=== PATIENT | female | born 1970 | race American Indian/Alaskan Native ===

== ENCOUNTER 2016-04-04 13:38 | Emergency (ER) | payer SELFPAY ==
[2016-04-04] MEDS ORDERED: ROCEPHIN IM STA (16:25)
--- NOTE | 2016-04-04 16:25 | Emergency Department Report ---
Upper Extremity - HPI Chief Complaint: Laceration/Recheck/Suture Stated Complaint: RT HAND FINGER BROKEN Time Seen by Provider: 04/04/16 16:17 Upper Extremity: Right Hand (right hand pain), Right Middle Finger (right finger injury after fall. Laceration) Occurred When: Today Mechanism: Fall Severity: severe Symptoms: Yes Pain with Movement (right middle finger), Yes Deformity (positive deformity), Yes Limited Range of Movement (right middle finger), Yes Swelling ( middle finger), Yes Laceration or Abrasion (right middle finger laceration), No Numbness, No Weakness, No Bruising/Ecchymosis Other History: Patient here reported that she was walking and [employer] today and she slipped and fell on wet floor. She was trying to break her fall and her right hand bent back and now she has a cut on her right middle finger and it is deformed. Report pain 10 out of 10. Denies any numbness or tingling. When asked, patient says she got her last tetanus shot in 2016 ED Review of Systems ROS: Stated complaint: RT HAND FINGER BROKEN Other details as noted in HPI Comment: All other systems reviewed and negative Constitutional: no symptoms reported Respiratory: no symptoms reported Cardiovascular: denies: chest pain, palpitations, edema, syncope Gastrointestinal: denies: nausea, vomiting Musculoskeletal: joint swelling, arthralgia Skin: other (laceration to right middle finger) Neurological: denies: weakness, numbness, paresthesias, abnormal gait, vertigo ED Past Medical Hx - Past Medical History Previous Medical History?: Yes Additional medical history: Vertigo - Surgical History Past Surgical History?: Yes Additional Surgical History: Hysterectomy - Family History Family history: no significant - Social History Smoking Status: Never Smoker Substance Use Type: None - Medications Home Medications: Home Medications Medication Instructions Recorded Confirmed Last Taken Type Promethazine [Phenergan TAB] 25 mg PO Q8HR PRN #15 tab 05/05/15 Unknown Rx Acetaminophen/Codeine [Tylenol #3] 1 tab PO Q6H PRN #12 tab 04/04/16 Unknown Rx Sulfamethoxazole/Trimethoprim 1 each PO BID #20 tablet 04/04/16 Unknown Rx [Bactrim DS TAB] Upper Extremity Exam - Exam General: Vital signs noted. No distress. Alert and acting appropriately. This is a 46-year-old female well-nourished well-developed in no acute distress. Head and Torso: No HEENT Abnormality, No Neck Tenderness, No Chest/Lungs Abnormality, No Abdominal Tenderness, No Back Tenderness Shoulder Exam: No Shoulder Tenderness, No Clavicle Tenderness, No Normal Range of Motion in Shoulder, No Shoulder Deformity, No AC Joint Tenderness Arm Exam: No Arm/Humerus Tenderness, No Arm Deformity Elbow: Yes Normal Range of Motion in Elbow, No Elbow Tenderness, No Elbow Deformity Forearm: No Forearm Tenderness, No Forearm Deformity, No Pain with Pronation, No Pain with Supination Wrist: Yes Normal ROM in Wrist, No Wrist Tenderness, No Wrist Deformity, No Snuffbox Tenderness, No Pain with Axial Thumb Compression Hand: Yes Digit Tenderness (right middle finger), Yes Normal ROM in Digit(s) ( right middle finger), Yes Digit(s) Deformity (right middle finger), No Hand Tenderness, No Hand Deformity, No Tendon Dysfunction CMS Exam: Yes Broken Skin (right middle finger laceration 0.5 cm), Yes Normal Distal Pulses, Yes Normal Capillary Refill, Yes Normal Distal Sensation ED Course Vital Signs 04/04/16 13:45 Temperature 97.8 F Pulse Rate 88 Respiratory 20 Rate Blood Pressure 156/107 O2 Sat by Pulse 100 Oximetry Vital Signs 04/04/16 04/04/16 13:45 19:32 Temperature 97.8 F 98.1 F Pulse Rate 88 101 H Respiratory 20 18 Rate Blood Pressure 156/107 Blood Pressure 125/73 [Right] O2 Sat by Pulse 100 96 Oximetry - Reevaluation(s) Reevaluation #1: 04/04/16 19:32 Patient received Motrin 800 mg 1 tablet prior to procedure. Then requested stronger pain medicine so she was given Percocet 5/325 mg 2 tablets. He was also given Rocephin 1 g IM without any adverse reaction. 04/04/16 19:32 - Laceration /Wound Repair Right Medial Finger Wound Location: upper extremity (right middle finger palmar aspect) Wound Length (cm): 0 (0.5 cm) Wound's Depth, Shape: superficial, linear Wound Explored: clean Irrigated w/ Saline (ccs): 500 Betadine Prep?: Yes (0.5% Marcaine) Volume Anesthetic (ccs): 5 Wound Debrided: extensive Wound Repaired With: sutures Suture Size/Type: 5:0 Number of Sutures: 7 Layer Closure?: No Sterile Dressing Applied?: Yes - Nerve Block Consent Obtained: verbal consent Time Out Performed: Yes Local Anesthetic Used: Marcaine 0.5% Amount of anesthesia used: 5 Side: right Nerve Blocks: digital (middle finger) Procedure Successful: Yes Complications: none Patient Tolerated Procedure: well, no complications - Orthopedic Joint Reduction Joint #1 Consent Obtained: verbal consent Time Out Performed: Yes Side: right Joint Reduction Location: finger (middle finger) Analgesia: digital block Local Anesthetic Used: Bupivicaine 0.5% Amount of Anesthetic Used (mls): 5 Post-Reduction Neuro Exam: intact Post-Reduction Vascular Exam: intact Post Reduction X-Ray Obtained: Yes Post Reduction X-Ray Results: reduced Splint Applied: Yes (metal finger splint) Patient Tolerated Procedure: well, no complications ED Medical Decision Making - Radiology Data Radiology results: report reviewed X-ray of right middle finger showed dislocation. X-ray status post reduction showed normal bony alignment without any fracture or dislocation - Medical Decision Making ED course: Procedure note for details on multiple procedures Critical care attestation.: If time is entered above; I have spent that time in minutes in the direct care of this critically ill patient, excluding procedure time. ED Disposition Clinical Impression: Dislocation of right middle finger Qualifiers: Encounter type: initial encounter Qualified Code(s): S63.252A - Unspecified dislocation of right middle finger, initial encounter Finger laceration Qualifiers: Encounter type: initial encounter Qualified Code(s): S61.219A - Laceration without foreign body of unspecified finger without damage to nail, initial encounter Contusion of finger of right hand Qualifiers: Encounter type: initial encounter Finger: middle finger Damage to nail status: without damage Qualified Code(s): S60.031A - Contusion of right middle finger without damage to nail, initial encounter Disposition: DISCHARGED TO HOME OR SELFCARE Is pt being admited?: No Does the pt Need Aspirin: No Condition: Stable Instructions: Finger Laceration (ED), Suture Care (ED), Finger Dislocation (ED) , Arthralgia (ED) Additional Instructions: Take antibiotics as prescribed. Pain medicine can cause drowsiness. Do not drive or operate any heavy machinery while on pain medicine Follow-up with orthopedic doctor if she continues to have pain. Splint in place for 72 hours Please return in 7 days to have sutures removed .If you notice. Redness, swelling, increased pain, stiffness to finger, numbness or tingling and fever. Please return to the emergency room [facility]. Prescriptions: Acetaminophen/Codeine [Tylenol #3] 1 tab PO Q6H PRN #12 tab PRN Reason: Pain Sulfamethoxazole/Trimethoprim [Bactrim DS TAB] 1 each PO BID #20 tablet Referrals: KIMBERLY SALDANA MD [Staff Physician] - 2-3 Days PRIMARY CARE, [Primary Care Provider] - 7-10 days Forms: Accompanied Note, Work/School Release Form(ED)
[2016-04-04] MEDS ORDERED: XYLOCAINE 1% MPF 5 mL INFILTRATI ONE (16:26)
[2016-04-04] MEDS ORDERED: MOTRIN PO ONE (16:26)
[2016-04-04] MEDS ORDERED: NACL 0.9% IR ONE (16:28)
[2016-04-04] MEDS ORDERED: MARCAINE 0.5% INFILTRATI ONE (17:37)
[2016-04-04] MEDS ORDERED: PERCOCET 5/325 PO ONE (17:57)
--- NOTE | 2016-04-04 19:22 | XRay Report ---
FINAL REPORT EXAM: XR HAND 2V RT HISTORY: reduction of dislocated finger. post reduction TECHNIQUE: AP view of the right hand and a lateral view of the right 3rd finger PRIORS: Right hand series performed earlier on the same day FINDINGS: There is been interval reduction of a 3rd proximal interphalangeal joint dislocation. Presently the bones are normally aligned. There is no evidence of acute fracture. IMPRESSION: Status post reduction of a 3rd proximal interphalangeal joint dislocation.
--- NOTE | 2016-04-04 19:32 | XRay Report ---
FINAL REPORT EXAM: XR HAND 3 RT HISTORY: rt hand injury/pain lac, TECHNIQUE: Three views of the right hand PRIORS: Subsequent hand series performed later on the same day FINDINGS: Present images show medial subluxation of the 3rd middle phalanx with respect to proximal of about 1/2 shaft with or 6 millimeters. There is complete dorsal subluxation. There is approximately 9 millimeters of overlap of the bones. There is no evidence of acute fracture. There is associated soft tissue swelling. Otherwise, the bones, joints and soft tissues are unremarkable. IMPRESSION: Medial and dorsal subluxation of the 3rd middle phalanx with respect to proximal.
[2016-04-04 19:33] VITALS: BP 125/73
== END 2016-04-04 19:46 | disposition home or self-care (01) ==
LOC: ED 13:38
DX: S63.252A Unspecified dislocation of right middle finger, initial encounter (principal); S61.212A Laceration without foreign body of right middle finger without damage to nail, initial encounter; S60.031A Contusion of right middle finger without damage to nail, initial encounter; W01.0XXA Fall on same level from slipping, tripping and stumbling without subsequent striking against object, initial encounter; Y93.9 Activity, unspecified; Y92.9 Unspecified place or not applicable; Y99.9 Unspecified external cause status
CPT/HCPCS: 12041; 26770; 73120; 73130; 96372; 99283; J0696

== ENCOUNTER 2020-09-05 07:15 | Outpatient (CLI) | payer BC ==
--- NOTE | 2020-09-05 09:06 | Fluoroscopy Report ---
Barium swallow Indication: Preoperative evaluation. Technique: Single and double contrast barium technique utilized to evaluate the esophagus. Findings: No mucosal irregularity, mass, mass effect, or critical stenosis. There were no abnormal tertiary c ontractions as seen with dysmotility. There was mild gastroesophageal reflux reaching the lower esoph paul. There was also a small hiatal hernia. Impression: Small hiatal hernia and mild gastroesophageal reflux. Fluoroscopic time: 0.6 minutes Number of fluoroscopic images: 18 Signer Name: Luther Wright MD Signed: 09/05/2020 9:02 AM Workstation Name: [id number]
== END 2020-09-05 07:16 | disposition home or self-care (01) ==
LOC: FLUORO 07:15
PROVIDERS: ATTEND Surgery
DX: K21.9 Gastro-esophageal reflux disease without esophagitis (principal); E66.01 Morbid (severe) obesity due to excess calories
CPT/HCPCS: 74220

== ENCOUNTER 2020-09-10 06:31 | Day surgery (SDC) | payer BC ==
[2020-09-10] MEDS ORDERED: SODIUM CHLORIDE 0.9% 1000 ML 1,000 ML IV SCH (07:00)
--- NOTE | 2020-09-10 07:26 | Anesthesia Consultation ---
Anesthesia Consult and Med Hx Date of service: 09/10/20 - Airway Anesthetic Teeth Evaluation: Good ROM Head & Neck: Adequate Mental/Hyoid Distance: Adequate Mallampati Class: Class III Intubation Access Assessment: Possibly Difficult - Pre-Operative Health Status ASA Pre-Surgery Classification: ASA3 Proposed Anesthetic Plan: MAC - Other Systems Hx Obesity: Yes (BMI 52.0) - Additional Comments Anesthesia Medical History Comments: Bariatric surgical evaluation
--- NOTE | 2020-09-10 07:27 | Anesthesia Day of Surgery ---
Anesthesia Day of Surgery - Day of Surgery Patient Examined: Yes Patient H&P Reviewed: Yes Patient is NPO: Yes
[2020-09-10] MEDS ORDERED: ONDANSETRON 4 MG/2 ML INJ ONE (07:38)
[2020-09-10] MEDS ORDERED: LIDOCAINE MPF (2%) 20 MG/1 ML VIAL 5 ML ONE (07:38)
[2020-09-10] MEDS ORDERED: fentaNYL 100 MCG/2 ML INJ ONE (07:39)
[2020-09-10] MEDS ORDERED: propofoL 200 MG/20 ML VIAL IV ONE (07:39)
--- NOTE | 2020-09-10 08:19 | Discharge Summary ---
Providers - Providers Date of Admission: 09/10/2020 Date of discharge: 09/10/20 Attending physician: AARON PERRY MD Primary care physician: QUITA JACOBSON Hospitalization Reason for admission: s/p EGD with bx Condition: Good Procedures: EGD with bx Hospital course: Pt presented for a pre-op EGD as part of planning for up coming bariatric surgery. Procedure was uneventful and pt recovered well and was discharged to home. Disposition: DC-01 TO HOME OR SELFCARE Final Discharge Diagnosis (Prints w/discharge instructions): morbid obesity Core Measure Documentation - Palliative Care Palliative Care/ Comfort Measures: Not Applicable - Core Measures Any of the following diagnoses?: none Exam - Physical Exam Narrative exam: unchanged from pre-op - Constitutional Vitals: Temp Pulse Resp BP Pulse Ox 98.1 F 88 19 135/86 96 09/10/20 07:10 09/10/20 07:10 09/10/20 07:10 09/10/20 07:10 09/10/20 07:10 Plan Activity: advance as tolerated Diet: low carbohydrate Follow up with: QUITA JACOBSON MD [Primary Care Provider] - 7 Days
--- NOTE | 2020-09-10 08:21 | Operative Report ---
Operative Report Operative Report: DATE: 09/10/2020 SURGERY: Upper endoscopy. SURGEON: Emigdio Borden M.D. PROCEDURE: EGD with biopsy PRE OP DX: morbid obesity, GERD POST OP DX: morbid obesity, GERD TYPE OF ANESTHESIA: MAC. ESTIMATED BLOOD LOSS: None. COMPLICATIONS: None. SPECIMENS REMOVED: antral biopsy FINDINGS: 1. hiatal hernia. 2. mild gastritis INDICATIONS:INDICATION FOR PROCEDURE: Patient is a 50-year-old female with a long history of morbid obesity. She is planned to have a weight loss procedure and is here for preoperative planning EGD. PROCEDURE DETAILS: After consent was reviewed, patient was taken back to the operating room where patient was placed in the left lateral decubitus position and a bite block was placed in the mouth. After a time-out was called, MAC anesthesia was initiated. I then passed the endoscope into her oropharynx, into her esophagus, visualized the entire esophagus, which was all within normal limits. Z-line was noted to about 35cm from incisors. I then visualized the stomach and the first portion of the duodenum and there were no abnormalities I could clearly visualize except for antral gastritis. A cold forceps biopsy of the antrum was taken and will be sent to pathology to evaluate for H.pylori. I then retroflexed the scope in the stomach and visualized the hiatus and I could see a small hiatal hernia. I then desufflated the stomach and removed the endoscope. Patient tolerated procedure well and was transferred to recovery room in good and stable condition.
[2020-09-10 08:32] VITALS: BP 119/81
--- NOTE | 2020-09-10 17:17 | Post Anesthesia Evaluation ---
- Post Anesthesia Evaluation Patient Participated: Yes Airway Patent: Yes Stable Respiratory Function: Yes Nausea/Vomiting: No Temp > 96.8F: Yes Pain Manageable: Yes Adequeate Hydration: Yes Anesthesia Complications: No Block Receding Appropriately: Not Applicable Patient on Ventilator: No
== END 2020-09-10 06:32 | disposition home or self-care (01) ==
LOC: GIO 06:31
PROVIDERS: ATTEND Surgery
DX: K21.9 Gastro-esophageal reflux disease without esophagitis (principal); E66.01 Morbid (severe) obesity due to excess calories; K44.9 Diaphragmatic hernia without obstruction or gangrene; K29.70 Gastritis, unspecified, without bleeding; Z79.899 Other long term (current) drug therapy; Z98.890 Other specified postprocedural states; Z68.43 Body mass index [BMI] 50.0-59.9, adult
CPT/HCPCS: 43239; 88305; 88342; J2405; J2704; J3010; J7030

== ENCOUNTER → 2020-09-30 | Outpatient (CLI) | payer BC | END | disposition home or self-care (01) | LOC: SLR 11:00 | PROVIDERS: ATTEND Otolaryngology | DX: G47.30 Sleep apnea, unspecified (principal) | CPT/HCPCS: G0399 ==

== ENCOUNTER 2020-10-10 11:00 | Outpatient (CLI) | payer BC | END 2020-10-10 11:01 | disposition home or self-care (01) | LOC: SLR 11:00 | PROVIDERS: ATTEND Surgery | DX: G47.33 Obstructive sleep apnea (adult) (pediatric) (principal) | CPT/HCPCS: 95811 ==

== ENCOUNTER 2020-10-21 06:01 | Inpatient (IN) | payer BC ==
[2020-10-11 09:56] LABS: Hematocrit 39.2 % (30.3-42.9); Hemoglobin 13.2 gm/dl (10.1-14.3); Mean Corpuscular HGB Conc 34 % (30-34); Mean Corpuscular Volume 86 fl (79-97); Platelet Count 293 K/mm3 (140-440); Red Blood Count 4.57 M/mm3 (3.65-5.03); Red Cell Distribution Width 15.9 % (13.2-15.2)
[2020-10-11 10:20] LABS: Alanine Aminotransferase 20 units/L (7-56); Albumin 4.2 g/dL (3.9-5); BUN/Creatinine Ratio 16; Blood Urea Nitrogen 13 mg/dL (7-17); Calcium 9.8 mg/dL (8.4-10.2); Hemolysis Index 2
--- NOTE | 2020-10-11 11:03 | Anesthesia Consultation ---
Anesthesia Consult and Med Hx Date of service: 10/21/20 - Airway Anesthetic Teeth Evaluation: Good ROM Head & Neck: Adequate Mental/Hyoid Distance: Adequate Mallampati Class: Class I Intubation Access Assessment: Good - Pre-Operative Health Status ASA Pre-Surgery Classification: ASA3 Proposed Anesthetic Plan: General - Pulmonary Hx Smoking: No Hx Respiratory Symptoms: No (+2FS) Hx Sleep Apnea: Yes - Other Systems Hx Alcohol Use: No Hx Substance Use: No Hx Cancer: No Hx Obesity: Yes (BMI 52.0) - Additional Comments Anesthesia Medical History Comments: NO RECORDS AVAILABLE AT THE TIME OF THIS VISIT. Pt reports negative cardiac workup. +ALEYDA and will be started on CPAP
[~2020-10-21 06:01] MED LIST: ENOXAPARIN 40 MG/0.4 ML INJ SUB-Q NR; GABAPENTIN 500 MG/10 ML ORAL LIQD PO NR; LACTATED RINGERS 1,000 ML IV SCH; MIDAZOLAM 2 MG/2 ML INJ IV NR; metroNIDAZOLE/NS 500 MG/100 ML 500 MG/100 ML BAG IV NR
--- NOTE | 2020-10-21 06:45 | Anesthesia Day of Surgery ---
Anesthesia Day of Surgery - Day of Surgery Patient Examined: Yes Patient H&P Reviewed: Yes Patient is NPO: Yes
[2020-10-21] MEDS ORDERED: SCOPOLAMINE TRANSDERMAL PATCH 72 HR TD ONE (06:46)
[2020-10-21] MEDS ORDERED: SUGAMMADEX SODIUM 200 MG/2 ML VIAL IV ONE (07:10)
[2020-10-21] MEDS ORDERED: LIDOCAINE (2%) 20 MG/1 ML VIAL 20 ML MDV INFILTRATI ONE (07:10)
[2020-10-21] MEDS ORDERED: MAGNESIUM SULFATE 4 GM/100 ML BAG IV ONE (07:11)
[2020-10-21] MEDS ORDERED: ROCURONIUM 50 MG/5 ML INJ IV ONE (07:25)
[2020-10-21] MEDS ORDERED: KETAMINE/STERILE WATER 50 MG/ML SYRINGE ONE (07:26)
[2020-10-21] MEDS ORDERED: BUPIVACAINE/PF (0.25%) 2.5 MG/ML 30 ML VIAL INFILTRATI ONE ×2 (07:27→08:44)
[2020-10-21] MEDS ORDERED: LIDOCAINE 1%/EPINEPHRINE 1:100,000 VIAL (20 ML) INFILTRATI ONE ×2 (07:27→08:44)
[2020-10-21] MEDS ORDERED: ACETAMINOPHEN IV 1,000 MG/100 ML BOTTLE IV NR (08:00)
[2020-10-21] MEDS ORDERED: ONDANSETRON 4 MG/2 ML INJ IV PRN ×2 (08:03→11:00)
[2020-10-21] MEDS ORDERED: HYDROmorphone 1 MG/1 ML INJ IV PRN ×2 (08:03→10:30)
[2020-10-21] MEDS ORDERED: SODIUM CHLORIDE 0.9% IRR 1,500 ML BOTTLE IR ONE (08:45)
[2020-10-21] MEDS ORDERED: LACTATED RINGERS 1,000 ML ONE (09:52)
[2020-10-21] MEDS ORDERED: dexAMETHasone 20 MG/5 ML VIAL ONE (09:52)
--- NOTE | 2020-10-21 09:55 | Operative Report ---
Operative Report Operative Report: DATE:10/21/2020 Surgeon: Emigdio Borden MD Manual Tester surgeon: Ivania Rendon CSA, MD Pre-op Dx: morbid obesity Post-op Dx: morbid obesity Procedure: 1. laparoscopic sleeve gastrectomy, 2. hiatal hernia repair Anesthesia: GETA and TAP block EBL: <10ml Specimen: gastric remnant Complication: none immediate Indication: 50 year old female with a history of morbid obesity . Pt is here for sleeve gastrectomy for weight loss to achieve healthier weight and improve or resolve his co-morbidities. She expressed understanding of the risks and benefits. PROCEDURE IN DETAIL: After consent was reviewed, patient was taken back to the operating room, where patient was placed supine on the bed with both arms out. The patient's legs were doubly strapped to the bed. Patient had a foot board in place. Patient had a body warmer placed by anesthesia. General anesthesia was induced with successful endotracheal intubation. Patient was then prepped and draped in normal sterile surgical fashion. After a time-out was called, I made a stab incision in the left subcostal area and placed a Veress needle through this incision and insufflated the abdomen to 18 mmHg pressure. I then counted down a handsbreadth below the xiphoid process in the midline and slightly left lateral injected local anesthetic and made about 1 cm transverse incision. I then used a 5-mm Optiview trocar to enter into the abdomen. There was no gross injury to any intra-abdominal structures. I then placed a 30-degree scope through this port and inspected the abdomen. I then placed a 8-mm port in the right upper quadrant, and 1 5mm in the epigastric area below the costovertebral angle. I then placed a 15-mm port about a handsbreadth in the right mid abdomen. After which a 5mm port was placed in left upper quadrant port along the anterior axillary line in a similar fashion. A liver retractor was placed to the epigastric port to elevate the left lateral lobe and liver. There was a small hiatal hernia appreciated that was accentuated with right and left crural dissection. Hiatal hernia sac was dissected from the crura until the GE junction was resting about 2cm below the level of the diaphragm without tension. An anterior crura-plasty was preformed a U-stitch using surgidac suture. The anterior gastric fat pad was excised. Starting approximately 6 cm proximal to the pylorus, using a LigaSure device the short gastrics were taken all the way to the left rena. Once the lateral portion of the stomach was mobile anesthesia passed a 40 Niuean bougie along the medial aspect to act as a stent. Using serial firings of endoscopic stapler to gold, followed by 5 blue, the lateral portion of the stomach was transected making sure to did not close to the 2 cm to the incisura. All staple loads were supported with Ethicon buttress strips. The sleeve stomach was seen to be without kink obstruction or twisting. The pre ssure was decreased to 10 mmHg. The staple line was inspected for approximately 5 minutes. There was no significant bleeding appreciated except for a slight loose at the most distal portion of the staple line. Bleeding was minimal and easily controlled with minimal cautery. Tisseel was then sprayed along the entirety of the staple line. The liver retractor was removed. A TAP block was performed with 60ml of 0.25% marcaine along bilateral mid axillary lines starting from the subcostal region to just below the level of the umbilicus This was after the gastric remnant was grasped and pulled into the 15 mm trocar site. The stomach was extracted via the 15 mm trocar site. After the fascia had to be stretched with a Lulu clamp to easily remove the stomach, the fascia was closed using a darrius isa device at the level of the fascia with an 0 PDS. trocars were removed under direct visualization. All skin incisions were closed with 4-0 Monocryl followed by Dermabond. Patient was awoken, extubated, and taken to recovery stable condition. All counts were correct.
[2020-10-21] MEDS ORDERED: LACTATED RINGERS 1,000 ML IV SCH (10:00)
[2020-10-21] MEDS ORDERED: SCOPOLAMINE TRANSDERMAL PATCH 72 HR TD SCH (10:00)
[2020-10-21] MEDS: HYDROmorphone 1 MG/1 ML INJ IV PRN ×4 (10:05→10:45)
[2020-10-21] MEDS ORDERED: hydrALAZINE 20 MG/1 ML INJ IV PRN (10:30)
[2020-10-21] MEDS: KETOROLAC 30 MG/1 ML INJ IV SCH ×3 (10:34→22:11)
[2020-10-21] MEDS ORDERED: METOCLOPRAMIDE 10 MG/2 ML INJ IV PRN (11:00)
[2020-10-21] MEDS ORDERED: HYDROcodone/Acetaminophen 7.5-325MG-15ML ORAL LIQD PO PRN (11:00)
[2020-10-21] MEDS: SIMETHICONE 80 MG CHEW TAB PO PRN ×2 (14:09→19:30)
[2020-10-21] MEDS: ACETAMINOPHEN IV 1,000 MG/100 ML BOTTLE IV SCH ×2 (14:11→22:10)
[2020-10-21] MEDS: PANTOPRAZOLE 40 MG INJ IV SCH (17:33)
[2020-10-21] MEDS: metroNIDAZOLE/NS 500 MG/100 ML 500 MG/100 ML BAG IV SCH (17:36)
[2020-10-21] MEDS: ceFAZolin/NS 1 GM/50 ML 1 GM/50 ML BAG IV SCH (18:00)
[2020-10-21] MEDS: MORPHINE 2 MG/1 ML INJ IV PRN (20:22)
[2020-10-22] MEDS: ceFAZolin/NS 1 GM/50 ML 1 GM/50 ML BAG IV SCH (00:31)
[2020-10-22] MEDS: metroNIDAZOLE/NS 500 MG/100 ML 500 MG/100 ML BAG IV SCH ×2 (01:54→11:10)
[2020-10-22] MEDS: ACETAMINOPHEN IV 1,000 MG/100 ML BOTTLE IV SCH ×2 (02:11→09:04)
[2020-10-22] MEDS: MORPHINE 2 MG/1 ML INJ IV PRN (03:36)
[2020-10-22] MEDS: SIMETHICONE 80 MG CHEW TAB PO PRN (03:37)
[2020-10-22 05:05] LABS: Basophils % (Auto) 0.1 % (0.0-1.8); Hematocrit 35.8 % (30.3-42.9); Lymphocytes # (Auto) 0.8 K/mm3 (1.2-5.4); Lymphocytes % (Auto) 8.5 % (13.4-35.0); Mean Corpuscular HGB Conc 34 % (30-34); Mean Corpuscular Volume 87 fl (79-97); Monocytes % (Auto) 10.5 % (0.0-7.3); Platelet Count 261 K/mm3 (140-440); Red Blood Count 4.14 M/mm3 (3.65-5.03); Red Cell Distribution Width 16.3 % (13.2-15.2)
[2020-10-22 05:24] LABS: Alanine Aminotransferase 20 units/L (7-56); Albumin 3.7 g/dL (3.9-5); Blood Urea Nitrogen 9 mg/dL (7-17); Calcium 9.1 mg/dL (8.4-10.2); Hemolysis Index 1
[2020-10-22 05:29] LABS: BUN/Creatinine Ratio 13
[2020-10-22] MEDS: KETOROLAC 30 MG/1 ML INJ IV SCH ×2 (05:47→16:41)
[2020-10-22] MEDS ORDERED: ENOXAPARIN 40 MG/0.4 ML INJ SUB-Q SCH (08:00)
[2020-10-22] MEDS: PANTOPRAZOLE 40 MG INJ IV SCH (10:59)
[2020-10-22 11:47] VITALS: BP 116/68
--- OUTSIDE RECORDS SUMMARY | 2020-10-22 14:12 | External Medical Summary ---
:1970 Author Organization [facility], [facility] Address [address] [place] [address] Care Team Providers Name Role Phone Emigdio Borden Unavailable [phone] PROBLEMS Type Condition ICD9-CM NAG00-VB Onset Condition W/U Status Risk SNOM ED Notes Code Code Dates Status Code Problem Gastro-esopha K21.9 Active confirmed 945023 005 geal reflux disease without esophagitis Problem Sleep apnea, G47.30 Active confirmed 2126588 6 unspecified Problem Dietary Z71.3 Active confirmed 500654909 counseling and surveillance Problem Morbid E66.01 Active confirmed 156791194 (severe) obesity due to excess calories Problem Sleep G47.9 Active confirmed 02754814 disorder, unspecified Problem Functional K30 Active confirmed 8874725 dyspepsia ALLERGIES No Known Allergies ENCOUNTERS from 1970 to 2020-10-22 Encounter Location Date Provider Diagnosis [facility] [address] [place] [address] Oct, [place] [address] IMMUNIZATIONS No Information SOCIAL HISTORY Sex Assigned At : Social History Observation Description Sex Assigned At Unknown REASON FOR REFERRAL from 1970 to 2020-10-22 Diagnosis 1 Morbid (severe) obesity due to excess calories (E66.01) Diagnosis 2 Functional dyspepsia (K30) Diagnosis 3 Sleep disorder, unspecified (G47.9) Diagnosis 4 Dietary counseling and surve illance (Z71.3) Diagnosis 5 Gastro-esophageal reflux dis ease without esophagitis (K21.9) Diagnosis 6 Sleep apnea, unspecified (G4 7.30) Referral Organization [facility] Referring Provider First Name Emigdio Referring Provider Last Name Suha Referring Provider Specialty Surgery Referred Provider [facility], - Referral Priority Routine VITAL SIGNS No information MEDICATIONS Medication SIG (Take, Route, Frequency, Notes Start Date End Frank e Status Duration) Ondansetron 4 MG 1-2 tablet on the tongue and 30 Sep, 2020 Active allow to dissolve Orally q 4-6 hours prn nausea for 30 day(s) Omeprazole 40 MG 1 capsule 30 minutes before Sep, Active morning meal Orally Once a day for 30 day(s) PROCEDURES No Information RESULTS No Results REASON FOR VISIT Gastric Sleeve MEDICAL (GENERAL) HISTORY Type Description Date Medical History ALEYDA Medical History GERD Surgical History lap hysterectomy 2013 Surgical History tubal ligation 2012 Hospitalization History as above Goals Section No Information Health Concerns No Information MEDICAL EQUIPMENT No Information MENTAL STATUS No Information FUNCTIONAL STATUS No Information ASSESSMENTS No Information PLAN OF TREATMENT Medication Medication Name Sig Start Date Stop Date Ondansetron 4 MG 1-2 tablet on the tongue and allow to Sep, 021 dissolve Orally q 4-6 hours prn nausea for 30 day(s) Omeprazole 40 MG 1 capsule 30 minutes before morning meal Sep Orally Once a day for 30 day(s) Referrals Referral Date Details Next Appt Details Provider Name:Emigdio Borden, 2020-10-14 0 09:00:00 AM, [address] [facility], [place], [place], [phone], Provider Name:Emigdio Borden, 2020-10-14 5 09:30:00 AM, [address] [facility], [place], [place], [phone], Insurance Providers Payer Name Payer Address Payer Insured Name Patient Coverage [employer] ver[employer] End Phone Relationship to Start Date Frank e Insured BCBS [facility] [address] [phone] [facility] [id number] [id number]
--- NOTE | 2020-10-22 17:15 | Discharge Summary ---
Providers - Providers Date of Admission: 10/21/20 06:01 Date of discharge: 10/22/20 Attending physician: AARON PERRY MD 10/21/20 09:56 Physical Therapy Evaluation and Treat [CONS] Routine Comment: Reason For Exam: post op bariatric surgery Primary care physician: QUITA JACOBSON Hospitalization Reason for admission: Status post laparoscopic sleeve gastrectomy with hiatal hernia repair Condition: Good Procedures: Laparoscopic sleeve gastrectomy with hiatal hernia repair Hospital course: Patient was admitted after uneventful laparoscopic sleeve gastrectomy. Patient remained stable and afebrile. She was tolerating clear liquids with good pain control and ambulating well. She was discharged to home with no clinical signs of leak or bleeding on postop day 1. Disposition: TO HOME OR SELFCARE Final Discharge Diagnosis (Prints w/discharge instructions): Morbid obesity Core Measure Documentation - Palliative Care Palliative Care/ Comfort Measures: Not Applicable - Core Measures Any of the following diagnoses?: none Exam - Constitutional Vitals: Temp Pulse Resp BP Pulse Ox 98.9 F 84 18 116/68 91 10/22/20 11:12 10/22/20 11:12 10/22/20 11:12 10/22/20 11:12 10/22/20 11:12 General appearance: Present: no acute distress, obese - Respiratory Respiratory effort: normal - Cardiovascular Heart Sounds: Present: S1 & S2 - Abdominal General gastrointestinal: Present: soft, other (Incisions clean dry and intact, appropriately tender to palpation) Plan Activity: advance as tolerated Diet: clear liquids Wound: open to air, keep clean and dry Follow up with: QUITA JACOBSON MD [Primary Care Provider] - 7 Days
== END 2020-10-22 17:45 | disposition home or self-care (01) | DRG 621 ==
LOC: 3A 06:01 → 3B 15:22
PROVIDERS: ADMIT Surgery; ATTEND Surgery
PROC: 0DB64Z3 Excision of Stomach, Percutaneous Endoscopic Approach, Vertical (ICD-10-PCS; principal; 2020-10-21)
PROC: 0BQT4ZZ Repair Diaphragm, Percutaneous Endoscopic Approach (ICD-10-PCS; 2020-10-21)
DX: E66.01 Morbid (severe) obesity due to excess calories (principal); K44.9 Diaphragmatic hernia without obstruction or gangrene; G47.30 Sleep apnea, unspecified; Z68.43 Body mass index [BMI] 50.0-59.9, adult; Z20.822 Contact with and (suspected) exposure to COVID-19
CPT/HCPCS: 36415; 80053; 85025; 85027; 88307; 88342; G0378; C9113; C9250; J0131; J0690; J1100; J1170; J1650; J1885; J2250; J2270; J2405; J2704; J3475; J3490; J7120; U0003

== ENCOUNTER 2020-11-20 13:05 | Outpatient (CLI) | payer BC ==
[2020-11-20 13:47] LABS: Basophils % (Auto) 0.9 % (0.0-1.8); Eosinophils # (Auto) 0.2 K/mm3 (0.0-0.4); Eosinophils % (Auto) 4.7 % (0.0-4.3); Hematocrit 38.8 % (30.3-42.9); Lymphocytes # (Auto) 1.8 K/mm3 (1.2-5.4); Lymphocytes % (Auto) 33.7 % (13.4-35.0); Mean Corpuscular HGB Conc 34 % (30-34); Mean Corpuscular Volume 86 fl (79-97); Monocytes # (Auto) 0.5 K/mm3 (0.0-0.8); Monocytes % (Auto) 10.3 % (0.0-7.3); Platelet Count 259 K/mm3 (140-440); Red Blood Count 4.52 M/mm3 (3.65-5.03); Red Cell Distribution Width 15.7 % (13.2-15.2)
[2020-11-20 13:56] LABS: % Iron Saturation 19.03 %; Alanine Aminotransferase 18 units/L (7-56); Albumin 4.2 g/dL (3.9-5); BUN/Creatinine Ratio 11; Blood Urea Nitrogen 9 mg/dL (7-17); Calcium 9.8 mg/dL (8.4-10.2); Chol/HDL Ratio 2.89 %; HDL Cholesterol 49 mg/dL (40-59); Hemolysis Index 12; Iron 43 ug/dL (37-170); LDL Cholesterol,Direct 90 mg/dL (50-130); Total Iron Binding Capacity 226 mcg/dL (250-450)
[2020-11-23 11:59] LABS: Vitamin D, 25-OH, D2 <4 ng/mL
== END 2020-11-20 13:06 | disposition home or self-care (01) ==
LOC: LAB 13:05
PROVIDERS: ATTEND Surgery
DX: E55.9 Vitamin D deficiency, unspecified (principal); E66.01 Morbid (severe) obesity due to excess calories; K30 Functional dyspepsia; K90.9 Intestinal malabsorption, unspecified; E11.9 Type 2 diabetes mellitus without complications; Z98.84 Bariatric surgery status
CPT/HCPCS: 36415; 80053; 80061; 82306; 82607; 82728; 83550; 83970; 84425; 84443; 85025